=== PATIENT | male | born 1995 | race Caucasian/White ===

== ENCOUNTER 2017-08-09 21:34 | Emergency (ER) | payer BC, OTHER ==
[2017-08-09] MEDS ORDERED: Sodium Chloride 0.9% 1,000 ML IV ONE (21:36)
[2017-08-09] MEDS ORDERED: Morphine 10 MG/ML Syringe IV ONE (21:37)
[2017-08-09] MEDS ORDERED: HYDROmorphone 1 MG/ML Syringe ONE (21:45)
[2017-08-09] MEDS ORDERED: Diphtheria,Pertussis(Acell),Tetanus Vaccine 0.5 ML Syringe IM ONE (21:45)
[2017-08-09] MEDS ORDERED: cefTRIAXone 1 GM in Premix Bag 1 BAG IV ONE (21:46)
[2017-08-09 22:14] LABS: CHLORIDE,CL 108 mmol/L (98-110); SODIUM,NA 143 mmol/L (136-146)
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
[2017-08-09] MEDS ORDERED: Lidocaine 1% with EPINEPHrine 1:100,000 20 ML MDV ONE (23:18)
[2017-08-10] MEDS ORDERED: HYDROmorphone 1 MG/ML Syringe ONE (00:23)
[2017-08-10 04:40] VITALS: BP 132/86
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
== END 2017-08-10 00:41 | disposition other institution (70) ==
LOC: MW.ED 21:34
DX: S27.0XXA Traumatic pneumothorax, initial encounter (principal); S22.42XA Multiple fractures of ribs, left side, initial encounter for closed fracture; S22.22XA Fracture of body of sternum, initial encounter for closed fracture; S72.351A Displaced comminuted fracture of shaft of right femur, initial encounter for closed fracture; F17.210 Nicotine dependence, cigarettes, uncomplicated; Z23 Encounter for immunization; V48.5XXA Car driver injured in noncollision transport accident in traffic accident, initial encounter; Y92.410 Unspecified street and highway as the place of occurrence of the external cause
CPT/HCPCS: 29505; 36415; 51702; 70450; 71010; 71260; 72125; 72170; 73552; 74177; 80053; 80305; 81001; 82550; 82553; 85025; 85610; 86850; 86900; 86901; 90471; 90715; 93005; 96361; 96365; 96366; 96374; 96375; 99285; G0390; G0480; J0696; J1170; J2270; J7040; 99284

== ENCOUNTER 2023-11-03 10:24 | Emergency (ER) | payer MEDICAID ==
[2023-11-03] MEDS ORDERED: Lidocaine 1% with EPINEPHrine 1:100,000 20 ML MDV INJECT ONE (10:51)
[2023-11-03] MEDS ORDERED: Bacitracin Oint 1 GM U/D Packet TOP ONE (11:14)
[2023-11-03 11:26] VITALS: BP 147/84; PULSE 110
== END 2023-11-03 11:25 | disposition home or self-care (01) ==
LOC: MW.ED 10:24
DX: S41.111A Laceration without foreign body of right upper arm, initial encounter (principal); W28.XXXA Contact with powered lawn mower, initial encounter
CPT/HCPCS: 12002; 99282